=== PATIENT | male | born 1965 | race Caucasian/White ===

== ENCOUNTER 2022-12-27 09:34 | Outpatient (CLI) | payer BC, SELFPAY | END 2022-12-27 09:35 | disposition home or self-care (01) | LOC: INJ CL 09:35 | PROVIDERS: PCP Family Medicine; Visit Provider Family Medicine | DX: M51.36 Other intervertebral disc degeneration, lumbar region (principal); M54.16 Radiculopathy, lumbar region | CPT/HCPCS: 62323; J0702; Q9966 ==

== ENCOUNTER 2023-05-16 09:46 | Outpatient (CLI) | payer MEDICAID, SELFPAY | END 2023-05-16 09:47 | disposition home or self-care (01) | LOC: INJ CL 09:47 | PROVIDERS: PCP Family Medicine; Visit Provider Family Medicine | DX: M51.36 Other intervertebral disc degeneration, lumbar region (principal); M54.16 Radiculopathy, lumbar region | CPT/HCPCS: 62323; J0702; Q9966 ==